=== PATIENT | male | born 1955 | race American Indian/Alaskan Native ===

== ENCOUNTER 2021-12-09 13:31 | Inpatient (IN) | payer MEDICARE, OTHER ==
[~2021-12-09] VITALS: Ht 170.2 cm; Wt 109.9 kg
[~2021-12-09 13:31] MED LIST: heparin 10,000 units/1 ML INJ ONE; normal saline 1000ML IV soln ONE; papaverine 30 mg/ml 2ml inj. ONE; sevoflurane 250ml liquid IH ONE
[2021-12-09] MEDS ORDERED: normal saline 1000ML IV soln IVB ONE ×2 (13:45→14:00)
[2021-12-09] MEDS ORDERED: normal saline 1000ml 1,000 ML IV ONE (13:45)
[2021-12-09] MEDS ORDERED: aspirin 81mg tab.chew PO ONE ×3 (13:45→16:55)
[2021-12-09] MEDS ORDERED: heparin 10,000 units/1 ML INJ IV ONE ×2 (13:50→14:05)
--- NOTE | 2021-12-09 13:57 | NUR ---
[facility] - DAUGHTER AT [facility] [phone]
--- NOTE | 2021-12-09 13:59 | NUR ---
DR RUGGIERO AT BEDSIDE
[2021-12-09] MEDS ORDERED: morphine 4 MG/ML inj SYRINge IV ONE (14:00)
[2021-12-09] MEDS: metoprolol tartrate 1mg/ml inj IV SCH ×3 (14:10→14:40)
[2021-12-09] MEDS: heparin 25,000 UNIT/250ml bag 250 ML IV SCH (14:10)
[2021-12-09 14:14] LABS: BASOPHILS # (AUTO) 0.1 X10'3 (0-0.2); BASOPHILS % (AUTO) 0.3 % (0-1); EOSINOPHILS # (AUTO) 0.1 X10'3 (0-0.9); EOSINOPHILS % (AUTO) 0.7 % (0-6); HEMATOCRIT 46.7 % (42.0-52.0); HEMOGLOBIN 15.8 g/dl (14.0-17.9); LYMPHOCYTES % (AUTO) 12.1 % (21-51); MEAN CORPUSCULAR HEMOGLOBIN 31.1 PG (27.0-31.0); MEAN CORPUSCULAR HGB CONC 33.9 g/dL (33.0-36.5); MEAN CORPUSCULAR VOLUME 91.8 FL (78-98); MEAN PLATELET VOLUME 7.6 FL (7.4-10.4); MONOCYTES # (AUTO) 0.9 X10'3 (0-0.9); MONOCYTES % (AUTO) 5.4 % (2-12); NEUTROPHILS # (AUTO) 13.5 X10'3 (1.8-7.7); NEUTROPHILS % (AUTO) 81.5 % (42-75); PLATELET COUNT 278 X10'3 (140-440); RED BLOOD COUNT 5.08 X10'6 (4.70-6.10); RED CELL DISTRIBUTION WIDTH 13.5 % (11.5-14.5); WHITE BLOOD COUNT 16.5 X10'3 (4.5-11.0)
[2021-12-09] MEDS ORDERED: midazolam 1 mg/ML 2ml injection ONE (14:23)
[2021-12-09] MEDS ORDERED: LIDOcaine 1% (10mg/ml)w/preservative injection 20ml MDV ONE (14:23)
[2021-12-09] MEDS ORDERED: fentaNYL/PF 50MCG/1 ML 2ML syringe ONE (14:23)
[2021-12-09] MEDS ORDERED: iohexol 350 MG/ML 50ML vial IV ONE (14:23)
[2021-12-09] MEDS ORDERED: iohexol 350MG/ML 100ml bottle IV ONE ×3 (14:23→15:40)
[2021-12-09 14:25] LABS: APTT 24 SECONDS (22-32)
[2021-12-09] MEDS: tirofiban 5mg in NS 100mL 100 ML IV SCH ×2 (14:31→19:07)
--- NOTE | 2021-12-09 14:31 | NUR ---
DOOR TO DOOR FUNDRAISING COLLECTOR AT BEDSIDE TO TAKE PT
[2021-12-09 14:35] LABS: ALANINE AMINOTRANSFERASE 55 U/L (12-78); ALBUMIN 4.1 G/DL (3.4-5.0); ALBUMIN/GLOBULIN RATIO 1.1 (1.1-1.5); ALKALINE PHOSPHATASE 91 IU/L (46-116); ANION GAP 12 (8-16); ASPARTATE AMINO TRANSFERASE 28 U/L (10-37); BILIRUBIN,TOTAL 0.7 MG/DL (0.1-1.0); BLOOD UREA NITROGEN 11 MG/DL (7-18); BUN/CREATININE RATIO 9.6 (5.4-32.0); CALCIUM 9.4 MG/DL (8.5-10.1); CHLORIDE 103 MMOL/L (99-107); CREATININE 1.15 MG/DL (0.60-1.10); GLUCOSE 191 MG/DL (70-104); MAGNESIUM 1.9 MG/DL (1.5-2.4); POTASSIUM 3.8 MMOL/L (3.5-5.1); SODIUM 139 MMOL/L (135-145); TOTAL CARBON DIOXIDE 24.4 MMOL/L (24-32); TOTAL PROTEIN 7.9 G/DL (6.4-8.2); eGFR 63 ML/MIN
[2021-12-09] MEDS ORDERED: diphenhydrAMINE 50 mg/ml inj ONE (14:43)
--- NOTE | 2021-12-09 14:45 | NUR ---
notified dr hayes that pt trop o hr is 463.
[2021-12-09] MEDS ORDERED: tirofiban 5mg in NS 100mL 100 ML IV ONE (15:10)
[2021-12-09] MEDS ORDERED: nitroGLYCERIN-Tridil 50MG/D5W 250 ML IV ONE (15:28)
[2021-12-09] MEDS ORDERED: tPA-cathflo 2 MG/2 ml IV flush ONE ×2 (15:33→15:34)
[2021-12-09] MEDS ORDERED: HYDROmorphone 1 mg/ml syringe ONE (16:04)
[2021-12-09] MEDS ORDERED: proCHLORperazine 10 MG/2 ml inj IV PRN (16:55)
[2021-12-09] MEDS ORDERED: acetaminophen 325mg tablet PO PRN ×2 (16:55)
[2021-12-09] MEDS ORDERED: OXAZEpam 15mg capsule PO PRN (16:55)
[2021-12-09] MEDS ORDERED: nitroGLYCERIN 0.4mg SUBLingual tab SL PRN (16:55)
[2021-12-09] MEDS ORDERED: magnesium hydroxide 30ml (MOM) UD suspension PO PRN (16:55)
[2021-12-09] MEDS ORDERED: morphine 10mg/ml inj. IV PRN (16:55)
[2021-12-09] MEDS ORDERED: HYDROmorphone 1 mg/ml syringe IV PRN (16:55)
[2021-12-09] MEDS ORDERED: morphine 4 MG/ML inj SYRINge IV PRN (16:55)
[2021-12-09 18:00] VITALS: BP 114/68
--- NOTE | 2021-12-09 18:10 | NUR ---
Patient in room ICU 2041. I have received report from YASMANY Baez and had the opportunity to ask questions and assume patient care. Patient is awake and alert in bed with his daughter at bedside. Patient states that she is his emergency contact: Bharti Hamlin [phone] cell, . Patient with right femoral sheath in place transduced to arterial line with good wave form on monitor. Patient in Sinus tachycardia at 120's with frequent ectopy. Patient in and out of a rhythm with ST elevation. Sheath in soft, non bruising noted, small area of oozing noted on gauze dressing- outlined. Positive pedial pulse present. Patient denies any numbness or tingling to extremities. Patient denies any chest pain or discomfort at this time. Patient with bilateral PIV's with Aggrastat and Heparin infusing. 1/2 normal saline infusing per MD order.
--- NOTE | 2021-12-09 18:40 | NUR ---
1830 patient cardiac rhythm pulsing V-tach rate in 190's. Patient without c/o chest pain or decrease in blood pressure during the 50 + beat run. Patient self converted out of rhythm into pre existing sinus tachycardia with episode of nausea and vomiting, Compazine adminsitered IV per order. Dr. Donaldson called order to give 2000 dose of 12.5 mg dose of Lopressor PO now. No other orders at this time.
[2021-12-09] MEDS: metoprolol tartrate 12.5mg (1/2 tablet) PO SCH (18:55)
[2021-12-09 19:00] VITALS: BP 126/68
[2021-12-09] MEDS: sodium chloride 0.45% 1,000 ML IV SCH (19:08)
[2021-12-09] MEDS: nitroGLYCERIN-Tridil 50MG/D5W 250 ML IV SCH (19:31)
[2021-12-09 19:59] LABS: BASOPHILS % (AUTO) 0.1 % (0-1); EOSINOPHILS % (AUTO) 0 % (0-6); HEMATOCRIT 40.9 % (42.0-52.0); LYMPHOCYTES # (AUTO) 1.1 X10'3 (1.1-4.8); LYMPHOCYTES % (AUTO) 6.7 % (21-51); MEAN CORPUSCULAR HEMOGLOBIN 30.9 PG (27.0-31.0); MEAN CORPUSCULAR HGB CONC 34.1 g/dL (33.0-36.5); MEAN CORPUSCULAR VOLUME 90.6 FL (78-98); MEAN PLATELET VOLUME 7.3 FL (7.4-10.4); MONOCYTES # (AUTO) 0.7 X10'3 (0-0.9); MONOCYTES % (AUTO) 4.5 % (2-12); NEUTROPHILS # (AUTO) 14.6 X10'3 (1.8-7.7); NEUTROPHILS % (AUTO) 88.7 % (42-75); PLATELET COUNT 267 X10'3 (140-440); RED BLOOD COUNT 4.52 X10'6 (4.70-6.10); RED CELL DISTRIBUTION WIDTH 13.5 % (11.5-14.5); WHITE BLOOD COUNT 16.5 X10'3 (4.5-11.0)
[2021-12-09 20:00] VITALS: BP 129/69
[2021-12-09] MEDS: docusate sod 100mg capsule PO SCH (20:00)
[2021-12-09 20:16] LABS: ALANINE AMINOTRANSFERASE 67 U/L (12-78); ALBUMIN 3.2 G/DL (3.4-5.0); ALBUMIN/GLOBULIN RATIO 0.9 (1.1-1.5); ALKALINE PHOSPHATASE 76 IU/L (46-116); ANION GAP 10 (8-16); ASPARTATE AMINO TRANSFERASE 177 U/L (10-37); BILIRUBIN,TOTAL 0.6 MG/DL (0.1-1.0); BLOOD UREA NITROGEN 10 MG/DL (7-18); BUN/CREATININE RATIO 11.9 (5.4-32.0); CALCIUM 8.7 MG/DL (8.5-10.1); CHLORIDE 105 MMOL/L (99-107); CREATININE 0.84 MG/DL (0.60-1.10); GLUCOSE 167 MG/DL (70-104); POTASSIUM 4.3 MMOL/L (3.5-5.1); SODIUM 138 MMOL/L (135-145); TOTAL CARBON DIOXIDE 22.6 MMOL/L (24-32); TOTAL PROTEIN 6.6 G/DL (6.4-8.2); eGFR > 90 ML/MIN
[2021-12-09 20:49] LABS: MAGNESIUM 1.9 MG/DL (1.5-2.4)
[2021-12-09 21:00] VITALS: BP 135/72
[2021-12-09] MEDS ORDERED: magnesium 2GM in 50ml NS 50 ML IV ONE (21:35)
--- NOTE | 2021-12-09 21:45 | NUR ---
Phone call to Dr. Donaldson re: Continued episodes of V-Tach 10-15 beat runs with flipping of bundle branch block, couplets noted in between. Patient denies chest pain or discomfort at this time, no change in blood pressure with arrhythmias. Reported current lab values K 4.[address] orders for Magnesium replacement. Per Dr. Donaldson he discussed case with Dr. Mcdonald. Dr. Donaldson to order Lidocaine drip.
[2021-12-09 22:00] VITALS: BP 127/65
[2021-12-09] MEDS: LIDOcaine 2 gm/250ml D5W 250 ML IV SCH (22:12)
[2021-12-09 23:00] VITALS: BP 127/64
[2021-12-09] MEDS: cyclobenzaprine 10mg tablet PO PRN (23:52)
[2021-12-09] MEDS: HYDROcodone/acetaminophen 10/325mg tab PO PRN (23:52)
[2021-12-10] VITALS (23 sets, daily range): BP systolic 75–134; BP diastolic 14–66
--- NOTE | 2021-12-10 | NUR ---
Patient complaining of upper back pain. Patient has chronic pain to his area and states "this feels normal" Patient rates pain 8/10 describes pain as "sore". Patient medicated per MD orders for pain, patient repositioned in bed.
[2021-12-10] MEDS: tirofiban 5mg in NS 100mL 100 ML IV SCH ×5 (00:48→23:29)
[2021-12-10] MEDS ORDERED: LIDOcaine 2% 10ml TOPICAL JELLY (Urojet) TP ONE (02:45)
[2021-12-10 03:34] LABS: BASOPHILS % (AUTO) 0.2 % (0-1); EOSINOPHILS % (AUTO) 0.1 % (0-6); HEMATOCRIT 40.3 % (42.0-52.0); HEMOGLOBIN 13.5 g/dl (14.0-17.9); LYMPHOCYTES # (AUTO) 1.6 X10'3 (1.1-4.8); LYMPHOCYTES % (AUTO) 10.2 % (21-51); MEAN CORPUSCULAR HEMOGLOBIN 30.5 PG (27.0-31.0); MEAN CORPUSCULAR HGB CONC 33.4 g/dL (33.0-36.5); MEAN CORPUSCULAR VOLUME 91.2 FL (78-98); MEAN PLATELET VOLUME 7.4 FL (7.4-10.4); MONOCYTES # (AUTO) 0.8 X10'3 (0-0.9); NEUTROPHILS # (AUTO) 13.2 X10'3 (1.8-7.7); NEUTROPHILS % (AUTO) 84.5 % (42-75); PLATELET COUNT 272 X10'3 (140-440); RED BLOOD COUNT 4.42 X10'6 (4.70-6.10); RED CELL DISTRIBUTION WIDTH 13.8 % (11.5-14.5); WHITE BLOOD COUNT 15.6 X10'3 (4.5-11.0)
[2021-12-10 03:58] LABS: ALANINE AMINOTRANSFERASE 72 U/L (12-78); ALBUMIN/GLOBULIN RATIO 0.9 (1.1-1.5); ALKALINE PHOSPHATASE 69 IU/L (46-116); ANION GAP 9 (8-16); ASPARTATE AMINO TRANSFERASE 219 U/L (10-37); BILIRUBIN,TOTAL 0.7 MG/DL (0.1-1.0); BLOOD UREA NITROGEN 13 MG/DL (7-18); BUN/CREATININE RATIO 15.5 (5.4-32.0); CALCIUM 8.2 MG/DL (8.5-10.1); CHLORIDE 103 MMOL/L (99-107); CREATININE 0.84 MG/DL (0.60-1.10); GLUCOSE 160 MG/DL (70-104); MAGNESIUM 2.5 MG/DL (1.5-2.4); POTASSIUM 4.2 MMOL/L (3.5-5.1); SODIUM 135 MMOL/L (135-145); TOTAL CARBON DIOXIDE 22.9 MMOL/L (24-32); TOTAL PROTEIN 6.3 G/DL (6.4-8.2); eGFR > 90 ML/MIN
--- NOTE | 2021-12-10 04:30 | NUR ---
Rounds with Dr. Tapia. Reviewed events of the shift, continued ectopy. MD to place orders for a slow Amiodarone bolus and 2 g Calcium replacement.
[2021-12-10] MEDS ORDERED: Insulin Reg/NS 100units/100mL 100 ML IV SCH ×2 (05:30→09:15)
[2021-12-10] MEDS ORDERED: amiodarone 150mg/dext, iso-os 100 ML IV ONE (05:50)
[2021-12-10] MEDS: CALCIUM GLUC 1gm/50ml NACL,iso 50 ML IV SCH ×2 (05:55→06:55)
--- NOTE | 2021-12-10 06:15 | NUR ---
Problems reprioritized. Patient report given, questions answered & plan of care reviewed with Rachna Becerril RN.
[2021-12-10] MEDS: atorvastatin 20mg tablet PO SCH (08:06)
[2021-12-10] MEDS: metoprolol tartrate 12.5mg (1/2 tablet) PO SCH ×2 (08:06→20:00)
[2021-12-10] MEDS: aspirin 81mg tab.chew PO SCH (08:06)
[2021-12-10] MEDS: docusate sod 100mg capsule PO SCH ×2 (08:06→20:00)
[2021-12-10] MEDS ORDERED: MESSAGE TO NURSING PO ONE ×7 (09:15→17:00)
[2021-12-10] MEDS ORDERED: cefazolin/dext.iso 2gm/50ml 50 ML IV ONE (09:15)
[2021-12-10] MEDS ORDERED: gabapentin 400mg capsule PO ONE (09:15)
[2021-12-10] MEDS ORDERED: insulin glargine (Lantus) pen - multi-dose SQ PRN (09:15)
[2021-12-10] MEDS ORDERED: MALTODEXTRIN/FRUCTOSE 0.68 KCAL/ML LIQUID 296ML BOTTLE PO ONE (09:15)
[2021-12-10] MEDS ORDERED: vancomycin/NS 1 GM ADD-VANTAGE 250 ML IV ONE (09:15)
[2021-12-10] MEDS ORDERED: dextrose 50%-water 50ml dispensing syringe IV PRN (09:15)
[2021-12-10] MEDS ORDERED: MESSAGE TO PHARMACY IJ ONE (09:15)
[2021-12-10] MEDS ORDERED: NO HOME MEDS (09:29)
[2021-12-10] MEDS: sodium chloride 0.45% 1,000 ML IV SCH (13:00)
[2021-12-10] MEDS: pantoprazole 40MG/NS 100ML BAG 100 ML IV SCH (13:41)
[2021-12-10] MEDS: lisinopril 2.5mg tablet PO SCH (13:50)
[2021-12-10] MEDS: heparin 25,000 UNIT/250ml bag 250 ML IV SCH (14:55)
[2021-12-10] MEDS: heparin 10,000 units/1 ML INJ IV PRN (16:02)
[2021-12-10 16:22] LABS: ABG HCO3 22.2 mmol/L (22.0-26.0); ABG OXYGEN SATURATION 92.6 % (94-97); ABG PCO2 (T) 29.5 mmHg (35.0-48.0); ABG PO2 (T) 59.5 mmHg (75.0-100.0); FCOHb 0.8 % (0.0-3.9); FMetHb 0.2 % (0.0-1.5); FO2Hb 91.7 % (94-97); TOTAL HEMOGLOBIN 13.8 G/dl (14.0-18.0)
[2021-12-10] MEDS: nitroGLYCERIN-Tridil 50MG/D5W 250 ML IV SCH (16:55)
[2021-12-10 18:02] LABS: CLARITY,URINE CLEAR (Clear); COLOR,URINE YELLOW (Yellow); GLUCOSE, URINE NEGATIVE (Neg); KETONES,URINE NEGATIVE (Neg); LEUKOCYTE ESTERASE ,URINE NEGATIVE (Neg); NITRITES, URINE NEGATIVE (Neg); OCCULT BLOOD,URINE NEGATIVE (Neg); PROTEIN,URINE NEGATIVE (Neg); UROBILINOGEN,URINE 0.2 E.U/dL (0.2-1.0)
[2021-12-10 18:13] LABS: UA COLLECTION TYPE VOIDED
[2021-12-10] MEDS: HYDROcodone/acetaminophen 10/325mg tab PO PRN (18:58)
[2021-12-10] MEDS: cyclobenzaprine 10mg tablet PO PRN (18:58)
[2021-12-11] VITALS (24 sets, daily range): BP systolic 97–127; BP diastolic 45–62
[2021-12-11 02:57] LABS: BASOPHILS # (AUTO) 0.1 X10'3 (0-0.2); BASOPHILS % (AUTO) 0.3 % (0-1); EOSINOPHILS # (AUTO) 0.1 X10'3 (0-0.9); EOSINOPHILS % (AUTO) 0.4 % (0-6); HEMATOCRIT 38.2 % (42.0-52.0); HEMOGLOBIN 12.7 g/dl (14.0-17.9); LYMPHOCYTES # (AUTO) 1.9 X10'3 (1.1-4.8); LYMPHOCYTES % (AUTO) 12.9 % (21-51); MEAN CORPUSCULAR HEMOGLOBIN 30.6 PG (27.0-31.0); MEAN CORPUSCULAR HGB CONC 33.3 g/dL (33.0-36.5); MEAN PLATELET VOLUME 8.2 FL (7.4-10.4); MONOCYTES # (AUTO) 1.1 X10'3 (0-0.9); MONOCYTES % (AUTO) 7.7 % (2-12); NEUTROPHILS # (AUTO) 11.4 X10'3 (1.8-7.7); NEUTROPHILS % (AUTO) 78.7 % (42-75); PLATELET COUNT 233 X10'3 (140-440); RED BLOOD COUNT 4.16 X10'6 (4.70-6.10); RED CELL DISTRIBUTION WIDTH 13.8 % (11.5-14.5); WHITE BLOOD COUNT 14.4 X10'3 (4.5-11.0)
[2021-12-11 03:11] LABS: ALANINE AMINOTRANSFERASE 59 U/L (12-78); ALBUMIN 2.7 G/DL (3.4-5.0); ALBUMIN/GLOBULIN RATIO 0.8 (1.1-1.5); ALKALINE PHOSPHATASE 56 IU/L (46-116); ANION GAP 8 (8-16); ASPARTATE AMINO TRANSFERASE 120 U/L (10-37); BLOOD UREA NITROGEN 17 MG/DL (7-18); BUN/CREATININE RATIO 19.8 (5.4-32.0); CALCIUM 7.7 MG/DL (8.5-10.1); CHLORIDE 104 MMOL/L (99-107); CREATININE 0.86 MG/DL (0.60-1.10); GLUCOSE 143 MG/DL (70-104); POTASSIUM 3.9 MMOL/L (3.5-5.1); SODIUM 136 MMOL/L (135-145); TOTAL CARBON DIOXIDE 24.5 MMOL/L (24-32); TOTAL PROTEIN 6.1 G/DL (6.4-8.2); eGFR 88 ML/MIN
[2021-12-11] MEDS: LIDOcaine 2 gm/250ml D5W 250 ML IV SCH (03:54)
[2021-12-11] MEDS: tirofiban 5mg in NS 100mL 100 ML IV SCH (03:59)
[2021-12-11] MEDS ORDERED: MESSAGE TO PHARMACY IJ ONE (05:30)
[2021-12-11] MEDS ORDERED: cefazolin/dext.iso 2gm/50ml 50 ML IV ONE ×2 (05:30)
[2021-12-11] MEDS ORDERED: gabapentin 400mg capsule PO ONE ×2 (05:30)
[2021-12-11] MEDS ORDERED: MESSAGE TO NURSING PO ONE ×4 (05:30→10:00)
[2021-12-11] MEDS ORDERED: MALTODEXTRIN/FRUCTOSE 0.68 KCAL/ML LIQUID 296ML BOTTLE PO ONE (05:30)
[2021-12-11] MEDS ORDERED: Insulin Reg/NS 100units/100mL 100 ML IV SCH (05:30)
[2021-12-11] MEDS ORDERED: vancomycin/NS 1 GM ADD-VANTAGE 250 ML IV ONE (05:30)
[2021-12-11] MEDS: docusate sod 100mg capsule PO SCH ×3 (08:00→20:06)
[2021-12-11] MEDS: atorvastatin 20mg tablet PO SCH (08:38)
[2021-12-11] MEDS: aspirin 81mg tab.chew PO SCH (08:38)
[2021-12-11] MEDS: metoprolol tartrate 12.5mg (1/2 tablet) PO SCH ×2 (08:39→20:06)
[2021-12-11] MEDS: HYDROcodone/acetaminophen 10/325mg tab PO PRN ×2 (08:39→17:29)
[2021-12-11] MEDS: lisinopril 2.5mg tablet PO SCH (08:55)
[2021-12-11] MEDS: sodium chloride 0.45% 1,000 ML IV SCH (09:00)
[2021-12-11] MEDS: pantoprazole 40MG/NS 100ML BAG 100 ML IV SCH (11:53)
[2021-12-11] MEDS ORDERED: ringers solution, lacted 1,000 ML IV ONE (12:05)
[2021-12-11] MEDS: heparin 10,000 units/1 ML INJ IV PRN ×2 (15:07→22:35)
[2021-12-11] MEDS: nitroGLYCERIN-Tridil 50MG/D5W 250 ML IV SCH (19:29)
[2021-12-11] MEDS: heparin 25,000 UNIT/250ml bag 250 ML IV SCH (22:10)
[2021-12-12] VITALS (23 sets, daily range): BP systolic 99–165; BP diastolic 48–95
[2021-12-12 04:37] LABS: BASOPHILS % (AUTO) 0.2 % (0-1); EOSINOPHILS # (AUTO) 0.1 X10'3 (0-0.9); EOSINOPHILS % (AUTO) 0.8 % (0-6); HEMATOCRIT 35.8 % (42.0-52.0); LYMPHOCYTES # (AUTO) 1.9 X10'3 (1.1-4.8); LYMPHOCYTES % (AUTO) 17.6 % (21-51); MEAN CORPUSCULAR HEMOGLOBIN 30.8 PG (27.0-31.0); MEAN CORPUSCULAR HGB CONC 33.5 g/dL (33.0-36.5); MEAN CORPUSCULAR VOLUME 91.9 FL (78-98); MEAN PLATELET VOLUME 7.6 FL (7.4-10.4); MONOCYTES % (AUTO) 9.1 % (2-12); NEUTROPHILS % (AUTO) 72.3 % (42-75); PLATELET COUNT 193 X10'3 (140-440); RED BLOOD COUNT 3.89 X10'6 (4.70-6.10); RED CELL DISTRIBUTION WIDTH 13.4 % (11.5-14.5)
[2021-12-12 04:50] LABS: ALANINE AMINOTRANSFERASE 40 U/L (12-78); ALBUMIN 2.5 G/DL (3.4-5.0); ALBUMIN/GLOBULIN RATIO 0.7 (1.1-1.5); ALKALINE PHOSPHATASE 59 IU/L (46-116); ANION GAP 8 (8-16); ASPARTATE AMINO TRANSFERASE 58 U/L (10-37); BILIRUBIN,TOTAL 0.7 MG/DL (0.1-1.0); BLOOD UREA NITROGEN 16 MG/DL (7-18); CALCIUM 7.8 MG/DL (8.5-10.1); CHLORIDE 103 MMOL/L (99-107); CREATININE 0.94 MG/DL (0.60-1.10); GLUCOSE 119 MG/DL (70-104); MAGNESIUM 2.1 MG/DL (1.5-2.4); POTASSIUM 3.8 MMOL/L (3.5-5.1); SODIUM 134 MMOL/L (135-145); TOTAL CARBON DIOXIDE 22.7 MMOL/L (24-32); eGFR 80 ML/MIN
[2021-12-12] MEDS: HYDROcodone/acetaminophen 10/325mg tab PO PRN (05:51)
[2021-12-12] MEDS ORDERED: famotidine/PF 10 mg/ml inj IV ONE (06:00)
[2021-12-12] MEDS ORDERED: LORazepam 2 mg/ml vial IV ONE (06:00)
[2021-12-12] MEDS ORDERED: cefazolin/dext.iso 2gm/50ml 50 ML IV ONE (06:00)
[2021-12-12] MEDS ORDERED: vancomycin/NS 1 GM ADD-VANTAGE 250 ML IV ONE (06:00)
--- NOTE | 2021-12-12 06:08 | NUR ---
Problems reprioritized. Patient report given, questions answered & plan of care reviewed with Ana JADE.
[2021-12-12] MEDS ORDERED: calcium chloride 100 MG/1 ML inj IV ONE (08:00)
[2021-12-12] MEDS ORDERED: sodium bicarbonate (8.4%) 1 mEq/ml syringe ONE (08:00)
[2021-12-12] MEDS: docusate sod 100mg capsule PO SCH ×2 (08:00→19:32)
[2021-12-12] MEDS ORDERED: NORepinephrine 8 MG in NS 250 ML BAG (32 mcg/ml) IV ONE (08:00)
[2021-12-12] MEDS ORDERED: albumin (human) 25% 100 ML IV solution IV ONE (08:00)
[2021-12-12] MEDS: atorvastatin 20mg tablet PO SCH (08:00)
[2021-12-12] MEDS: lisinopril 2.5mg tablet PO SCH (08:00)
[2021-12-12] MEDS: pantoprazole 40MG/NS 100ML BAG 100 ML IV SCH ×2 (08:00→20:25)
[2021-12-12] MEDS ORDERED: heparin 1,000 units/ml 10ml inj ONE (08:00)
[2021-12-12] MEDS: aspirin 81mg tab.chew PO SCH (08:00)
[2021-12-12] MEDS ORDERED: aminocaproic acid 250 MG/1 ML inj. ONE (08:00)
[2021-12-12] MEDS: metoprolol tartrate 12.5mg (1/2 tablet) PO SCH ×2 (08:00→19:32)
[2021-12-12] MEDS ORDERED: magnesium 1 GM/2 ML inj ONE (08:00)
[2021-12-12] MEDS ORDERED: LIDOcaine 2% (20 mg/ml) 5ml cardiac syringe ONE (08:00)
[2021-12-12] MEDS ORDERED: methylPREDNISolone sod succ 1000mg vial ONE (08:00)
[2021-12-12] MEDS ORDERED: heparin 10,000 units/1 ML INJ ONE (08:00)
[2021-12-12] MEDS: heparin 25,000 UNIT/250ml bag 250 ML IV SCH (08:38)
--- NOTE | 2021-12-12 08:53 | NUR ---
Porfirio BEEBE called and ordered the heparin to restart
--- NOTE | 2021-12-12 10:28 | NUR ---
Heparin turned off at 1000
[2021-12-12] MEDS ORDERED: ceFAZolin 1000mg inj ONE (11:42)
[2021-12-12] MEDS ORDERED: epiNEPHrine 1 mg/ml inj ONE (11:42)
[2021-12-12] MEDS ORDERED: gabapentin 400mg capsule PO ONE (11:47)
[2021-12-12] MEDS ORDERED: SUFENTANIL CITRATE 50 MCG/ML 2ml ampule IV ONE (12:27)
[2021-12-12] MEDS ORDERED: MIDAZolam 1 MG/ML 5ML VIAL ONE (12:28)
[2021-12-12] MEDS ORDERED: propofol inj 20 ML IV ONE (12:28)
[2021-12-12] MEDS ORDERED: rocuronium 10mg/ml inj IV ONE ×3 (12:32→15:52)
[2021-12-12 13:58] LABS: ABG BASE EXCESS -4.6 mmol/L (-2.0-2.0); ABG HCO3 20.3 mmol/L (22.0-26.0); ABG OXYGEN SATURATION 99.3 % (94-97); ABG PCO2 37.1 mmHg (35.0-48.0); ABG PO2 174.6 mmHg (75.0-100.0); CL (ABG) 102 mmol/L (98-110); FCOHb 0.8 % (0.0-3.9); FMetHb 0.3 % (0.0-1.5); FO2Hb 98.2 % (94-97); GLUCOSE (ABG) 182 mg/dl (70-105); IONIZED CA (ABG) 1.09 mmol/L (1.10-1.43); K (ABG) 3.7 mmol/L (3.5-5.0); TOTAL HEMOGLOBIN 11.7 G/dl (14.0-18.0)
[2021-12-12 14:48] LABS: ABG BASE EXCESS -2.5 mmol/L (-2.0-2.0); ABG HCO3 21.8 mmol/L (22.0-26.0); ABG OXYGEN SATURATION 99.7 % (94-97); ABG PCO2 35.6 mmHg (35.0-48.0); ABG PO2 417.6 mmHg (75.0-100.0); CL (ABG) 101 mmol/L (98-110); FCOHb 0.9 % (0.0-3.9); FMetHb 0.3 % (0.0-1.5); FO2Hb 98.5 % (94-97); GLUCOSE (ABG) 137 mg/dl (70-105); IONIZED CA (ABG) 0.98 mmol/L (1.10-1.43); K (ABG) 3.9 mmol/L (3.5-5.0); TOTAL HEMOGLOBIN 8.9 G/dl (14.0-18.0)
[2021-12-12 14:53] LABS: ACT @ 1.70 U 350 SEC (193-297); ACT @ 2.84 U 486 SEC (260-420); BASELINE ACT 168 SEC (101-148)
[2021-12-12 15:24] LABS: ABG BASE EXCESS VENOUS 1.3 mmol/L (-2.0 - 2.0); ABG HCO3 VENOUS 26.9 mmol/L (21.0-28.0); ABG PO2 VENOUS 47.2 mmHg (25.0-35.0); CL (ABG) 102 mmol/L (98-110); FCOHb VENOUS 1.1 %; FHHb VENOUS 17.8 %; FMetHb VENOUS 0.3 % (0.0 - 0.5); FO2Hb VENOUS 80.8 %; GLUCOSE (ABG) 154 mg/dl (70-105); TOTAL HEMOGLOBIN 9.8 G/dl (14.0-18.0)
[2021-12-12 16:03] LABS: ABG BASE EXCESS 3.8 mmol/L (-2.0-2.0); ABG HCO3 28.4 mmol/L (22.0-26.0); ABG OXYGEN SATURATION 99.7 % (94-97); ABG PO2 421.1 mmHg (75.0-100.0); CL (ABG) 101 mmol/L (98-110); FCOHb 0.6 % (0.0-3.9); FMetHb 0.3 % (0.0-1.5); FO2Hb 98.8 % (94-97); GLUCOSE (ABG) 160 mg/dl (70-105); IONIZED CA (ABG) 1.29 mmol/L (1.10-1.43); K (ABG) 3.8 mmol/L (3.5-5.0); TOTAL HEMOGLOBIN 9.1 G/dl (14.0-18.0)
[2021-12-12 16:23] LABS: ABG BASE EXCESS VENOUS -0.9 mmol/L (-2.0 - 2.0); ABG HCO3 VENOUS 24.4 mmol/L (21.0-28.0); ABG PCO2 VENOUS 43.1 mmHg (41.0-54.0); ABG PO2 VENOUS 45.6 mmHg (25.0-35.0); CL (ABG) 102 mmol/L (98-110); FCOHb VENOUS 1.3 %; FHHb VENOUS 20.5 %; FMetHb VENOUS 0.3 % (0.0 - 0.5); FO2Hb VENOUS 77.9 %; GLUCOSE (ABG) 145 mg/dl (70-105); K (ABG) 3.8 mmol/L (3.5-5.0)
[2021-12-12 16:27] LABS: ACTIVATED CLOTTING TIME 139 SEC (101-148)
[2021-12-12] MEDS ORDERED: Neutra Phos packet PO PRN (16:40)
[2021-12-12] MEDS ORDERED: nitroGLYCERIN-Tridil 50MG/D5W 250 ML IV SCH (16:40)
[2021-12-12] MEDS ORDERED: bisacodyl 10mg suppository rectal RC PRN (16:40)
[2021-12-12] MEDS ORDERED: potassium CL 10mEq/100ml bag 100 ML IV PRN (16:40)
[2021-12-12] MEDS ORDERED: acetaminophen 325mg tablet PO PRN ×2 (16:40)
[2021-12-12] MEDS ORDERED: sodium chloride 0.45% 1,000 ML IV SCH (16:40)
[2021-12-12] MEDS ORDERED: sodium phosphate inj. 15 MMOL in dextrose 5%-water 250 ML IV PRN (16:40)
[2021-12-12] MEDS ORDERED: metoclopramide 5 mg/ml inj IV PRN (16:40)
[2021-12-12] MEDS ORDERED: DOBUTamine-DoBUTrex 500mg/D5W 250 ML IV PRN (16:40)
[2021-12-12] MEDS ORDERED: mineral oil 133ml enema RC PRN (16:40)
[2021-12-12] MEDS ORDERED: sodium phosphate inj. 30 MMOL in dextrose 5%-water 250 ML IV PRN (16:40)
[2021-12-12] MEDS ORDERED: Insulin Reg/NS 100units/100mL 100 ML IV SCH (16:40)
[2021-12-12] MEDS ORDERED: albumin (Human) 5% 250ml 250 ML IV PRN (16:40)
[2021-12-12] MEDS ORDERED: potassium Cl 20 mEq SR tablet PO PRN (16:40)
[2021-12-12] MEDS ORDERED: potassium Cl 20mEq/100mL bag 100 ML IV PRN (16:40)
[2021-12-12] MEDS ORDERED: magnesium citrate 296ml oral solution PO PRN (16:40)
[2021-12-12] MEDS ORDERED: magnesium 2GM in 50ml NS 50 ML IV PRN (16:40)
[2021-12-12] MEDS ORDERED: magnesium hydroxide 30ml (MOM) UD suspension PO PRN (16:40)
[2021-12-12] MEDS ORDERED: dextrose 50%-water 50ml dispensing syringe IV PRN (16:40)
[2021-12-12] MEDS ORDERED: insulin glargine (Lantus) pen - multi-dose SQ PRN (16:40)
[2021-12-12] MEDS ORDERED: HYDROcodone/acetaminophen 10/325mg tab PO PRN (16:40)
[2021-12-12] MEDS ORDERED: magnesium 4gm in 100ml NS 100 ML IV PRN (16:40)
[2021-12-12] MEDS ORDERED: niCARDipine-NS 40mg/200ml IVPB 200 ML IV PRN (16:40)
[2021-12-12] MEDS ORDERED: NORepinephrine 8mg/ 250ml NS 250 ML IV PRN (16:40)
[2021-12-12] MEDS ORDERED: ondansetron/PF 4mg/2ml inj IV PRN (16:40)
--- NOTE | 2021-12-12 17:15 | NUR ---
pt to room 2041 after surgery.
[2021-12-12 17:29] LABS: ABG BASE EXCESS -2.9 mmol/L (-2.0-2.0); ABG HCO3 21.3 mmol/L (22.0-26.0); ABG OXYGEN SATURATION 98.2 % (94-97); ABG PCO2 (T) 34.5 mmHg (35.0-48.0); ABG PO2 (T) 132.5 mmHg (75.0-100.0); FCOHb 0.2 % (0.0-3.9); FMetHb 0.3 % (0.0-1.5); FO2Hb 97.7 % (94-97); PATIENT TEMPERATURE 36.7; PEEP 5 cm H2O; RESPIRATORY RATE 14 b/min; TIDAL VOLUME 600 mL
[2021-12-12 17:41] LABS: BASOPHILS % (AUTO) 0.1 % (0-1); EOSINOPHILS % (AUTO) 0.1 % (0-6); HEMATOCRIT 33.2 % (42.0-52.0); HEMOGLOBIN 11.1 g/dl (14.0-17.9); LYMPHOCYTES # (AUTO) 0.6 X10'3 (1.1-4.8); LYMPHOCYTES % (AUTO) 3.2 % (21-51); MEAN CORPUSCULAR HEMOGLOBIN 30.8 PG (27.0-31.0); MEAN CORPUSCULAR HGB CONC 33.5 g/dL (33.0-36.5); MEAN CORPUSCULAR VOLUME 92.1 FL (78-98); MEAN PLATELET VOLUME 7.8 FL (7.4-10.4); MONOCYTES # (AUTO) 0.8 X10'3 (0-0.9); MONOCYTES % (AUTO) 4.2 % (2-12); NEUTROPHILS % (AUTO) 92.4 % (42-75); PLATELET COUNT 121 X10'3 (140-440); RED BLOOD COUNT 3.61 X10'6 (4.70-6.10); RED CELL DISTRIBUTION WIDTH 13.5 % (11.5-14.5); WHITE BLOOD COUNT 19.5 X10'3 (4.5-11.0)
[2021-12-12 18:02] LABS: ALBUMIN 2.3 G/DL (3.4-5.0); ALBUMIN/GLOBULIN RATIO 0.9 (1.1-1.5); ANION GAP 8 (8-16); ASPARTATE AMINO TRANSFERASE 88 U/L (10-37); BILIRUBIN,TOTAL 0.9 MG/DL (0.1-1.0); BLOOD UREA NITROGEN 13 MG/DL (7-18); BUN/CREATININE RATIO 14.9 (5.4-32.0); CALCIUM 7.3 MG/DL (8.5-10.1); CHLORIDE 106 MMOL/L (99-107); CREATININE 0.87 MG/DL (0.60-1.10); GLUCOSE 151 MG/DL (70-104); MAGNESIUM 2.4 MG/DL (1.5-2.4); PHOSPHORUS 1.6 MG/DL (2.3-4.5); POTASSIUM 3.9 MMOL/L (3.5-5.1); SODIUM 139 MMOL/L (135-145); TOTAL CARBON DIOXIDE 24.8 MMOL/L (24-32); TOTAL PROTEIN 4.8 G/DL (6.4-8.2); eGFR 87 ML/MIN
[2021-12-12 18:03] LABS: ALANINE AMINOTRANSFERASE 32 U/L (12-78); ALKALINE PHOSPHATASE 44 IU/L (46-116)
[2021-12-12] MEDS: morphine 4 MG/ML inj SYRINge IV PRN (18:23)
[2021-12-12 18:51] LABS: APTT 31 SECONDS (22-32)
[2021-12-12] MEDS: sodium chloride 0.45% 1,000 ML IV SCH (19:20)
[2021-12-12] MEDS: sennosides/docusate sodium tablet PO SCH (19:32)
[2021-12-12] MEDS: mupirocin 2% nasal ointment 1gm UD NS SCH (19:32)
[2021-12-12] MEDS: vancomycin/NS 1 GM ADD-VANTAGE 250 ML IV SCH (20:26)
[2021-12-12] MEDS: gabapentin 300mg capsule PO SCH (20:27)
[2021-12-12 20:47] LABS: TOTAL CELLS COUNTED 100
[2021-12-12 20:48] LABS: PLATELET ESTIMATE DECREASED
[2021-12-12] MEDS ORDERED: atorvastatin 10mg tablet PO SCH (21:00)
[2021-12-12 22:47] LABS: ABG BASE EXCESS -1.1 mmol/L (-2.0-2.0); ABG HCO3 23.1 mmol/L (22.0-26.0); ABG OXYGEN SATURATION 97.8 % (94-97); ABG PCO2 (T) 36.8 mmHg (35.0-48.0); ABG PO2 (T) 108.7 mmHg (75.0-100.0); FCOHb 0.4 % (0.0-3.9); FMetHb 0.3 % (0.0-1.5); FO2Hb 97.1 % (94-97); PEEP 5 cm H2O; TOTAL HEMOGLOBIN 11.8 G/dl (14.0-18.0)
--- NOTE | 2021-12-12 23:16 | NUR ---
pt extubated at 2300 and report given to [place]. time allowed for questions. pt stable
[2021-12-13] VITALS (28 sets, daily range): BP systolic 102–125; BP diastolic 45–86
[2021-12-13 00:41] LABS: MEAN CORPUSCULAR HGB CONC 34.3 g/dL (33.0-36.5)
[2021-12-13 00:42] LABS: BASOPHILS % (AUTO) 0 % (0-1); EOSINOPHILS % (AUTO) 0 % (0-6); HEMATOCRIT 31.9 % (42.0-52.0); HEMOGLOBIN 10.9 g/dl (14.0-17.9); LYMPHOCYTES # (AUTO) 0.4 X10'3 (1.1-4.8); LYMPHOCYTES % (AUTO) 2.3 % (21-51); MEAN CORPUSCULAR HEMOGLOBIN 31.3 PG (27.0-31.0); MEAN CORPUSCULAR VOLUME 91.3 FL (78-98); MEAN PLATELET VOLUME 8.3 FL (7.4-10.4); MONOCYTES # (AUTO) 0.5 X10'3 (0-0.9); MONOCYTES % (AUTO) 3.4 % (2-12); NEUTROPHILS # (AUTO) 15.2 X10'3 (1.8-7.7); NEUTROPHILS % (AUTO) 94.3 % (42-75); PLATELET COUNT 135 X10'3 (140-440); RED CELL DISTRIBUTION WIDTH 13.6 % (11.5-14.5); WHITE BLOOD COUNT 16.1 X10'3 (4.5-11.0)
[2021-12-13] MEDS: cefazolin/dext.iso 2gm/50ml 50 ML IV SCH ×4 (00:50→23:05)
[2021-12-13 00:51] LABS: ALBUMIN 2.6 G/DL (3.4-5.0); ANION GAP 7 (8-16); BLOOD UREA NITROGEN 14 MG/DL (7-18); BUN/CREATININE RATIO 14.1 (5.4-32.0); CALCIUM 7.4 MG/DL (8.5-10.1); CHLORIDE 109 MMOL/L (99-107); CREATININE 0.99 MG/DL (0.60-1.10); GLUCOSE 140 MG/DL (70-104); MAGNESIUM 2.4 MG/DL (1.5-2.4); PHOSPHORUS 2.1 MG/DL (2.3-4.5); POTASSIUM 4.4 MMOL/L (3.5-5.1); SODIUM 141 MMOL/L (135-145); TOTAL CARBON DIOXIDE 24.9 MMOL/L (24-32); eGFR 75 ML/MIN
[2021-12-13] MEDS: morphine 2 MG/ML inj. syringe IV PRN (01:42)
[2021-12-13 01:50] LABS: PLATELET ESTIMATE DECREASED; TOTAL CELLS COUNTED 100
[2021-12-13] MEDS: morphine 4 MG/ML inj SYRINge IV PRN (02:57)
--- NOTE | 2021-12-13 03:45 | NUR ---
R femoral sheath pulled at 0315; manual hold x 20minutes; femstop applied, site clear, no hematoma. good DP pulse.
--- NOTE | 2021-12-13 06:18 | NUR ---
Problems reprioritized. Patient report given, questions answered & plan of care reviewed with YASMANY Baer .
[2021-12-13] MEDS: metoprolol tartrate 12.5mg (1/2 tablet) PO SCH ×2 (08:00→19:27)
[2021-12-13] MEDS: mupirocin 2% nasal ointment 1gm UD NS SCH ×2 (08:21→20:00)
[2021-12-13] MEDS: sennosides/docusate sodium tablet PO SCH ×2 (08:21→19:27)
[2021-12-13] MEDS: atorvastatin 20mg tablet PO SCH (08:21)
[2021-12-13] MEDS: docusate sod 100mg capsule PO SCH ×2 (08:21→19:27)
[2021-12-13] MEDS: lisinopril 2.5mg tablet PO SCH (08:21)
[2021-12-13] MEDS: aspirin 325mg tablet, delayed-release (Ecotrin) PO SCH (08:21)
[2021-12-13] MEDS: gabapentin 300mg capsule PO SCH ×3 (08:22→19:28)
[2021-12-13] MEDS: vancomycin/NS 1 GM ADD-VANTAGE 250 ML IV SCH ×2 (08:23→19:28)
[2021-12-13] MEDS: pantoprazole 40MG/NS 100ML BAG 100 ML IV SCH ×2 (08:23→19:28)
[2021-12-13] MEDS: HYDROcodone/acetaminophen 10/325mg tab PO PRN ×2 (08:33→16:40)
--- NOTE | 2021-12-13 11:46 | NUR ---
CABG Consult: Pt s/p CABGx5 yesterday per EMR. Would benefit from written/verbal CABG diet education post-op once appropriate. Addendum: 12/13/21 at [address] Amended: Links added.
[2021-12-14] VITALS (19 sets, daily range): BP systolic 94–118; BP diastolic 49–71
[2021-12-14] MEDS: morphine 2 MG/ML inj. syringe IV PRN (03:04)
[2021-12-14 04:15] LABS: BASOPHILS % (AUTO) 0.1 % (0-1); EOSINOPHILS % (AUTO) 0 % (0-6); HEMATOCRIT 26.4 % (42.0-52.0); HEMOGLOBIN 8.9 g/dl (14.0-17.9); LYMPHOCYTES # (AUTO) 1.1 X10'3 (1.1-4.8); LYMPHOCYTES % (AUTO) 7.8 % (21-51); MEAN CORPUSCULAR HGB CONC 33.7 g/dL (33.0-36.5); MEAN CORPUSCULAR VOLUME 92.1 FL (78-98); MEAN PLATELET VOLUME 8.2 FL (7.4-10.4); MONOCYTES # (AUTO) 1.3 X10'3 (0-0.9); MONOCYTES % (AUTO) 8.8 % (2-12); NEUTROPHILS # (AUTO) 12.1 X10'3 (1.8-7.7); NEUTROPHILS % (AUTO) 83.3 % (42-75); PLATELET COUNT 138 X10'3 (140-440); RED BLOOD COUNT 2.87 X10'6 (4.70-6.10); RED CELL DISTRIBUTION WIDTH 13.7 % (11.5-14.5); WHITE BLOOD COUNT 14.5 X10'3 (4.5-11.0)
[2021-12-14 04:25] LABS: ALBUMIN 2.3 G/DL (3.4-5.0); ANION GAP 6 (8-16); BLOOD UREA NITROGEN 20 MG/DL (7-18); BUN/CREATININE RATIO 19.8 (5.4-32.0); CALCIUM 7.2 MG/DL (8.5-10.1); CHLORIDE 101 MMOL/L (99-107); CREATININE 1.01 MG/DL (0.60-1.10); GLUCOSE 141 MG/DL (70-104); MAGNESIUM 2.3 MG/DL (1.5-2.4); PHOSPHORUS 2.5 MG/DL (2.3-4.5); POTASSIUM 3.9 MMOL/L (3.5-5.1); SODIUM 133 MMOL/L (135-145); eGFR 73 ML/MIN
[2021-12-14] MEDS ORDERED: pantoprazole 40mg Tablet.DR PO SCH (07:30)
[2021-12-14] MEDS: HYDROcodone/acetaminophen 10/325mg tab PO PRN ×2 (09:05→19:33)
[2021-12-14] MEDS: sennosides/docusate sodium tablet PO SCH ×2 (09:06→19:28)
[2021-12-14] MEDS: gabapentin 300mg capsule PO SCH ×2 (09:06→13:07)
[2021-12-14] MEDS: lisinopril 2.5mg tablet PO SCH (09:06)
[2021-12-14] MEDS: mupirocin 2% nasal ointment 1gm UD NS SCH (09:07)
[2021-12-14] MEDS: docusate sod 100mg capsule PO SCH ×2 (09:07→19:28)
[2021-12-14] MEDS: atorvastatin 20mg tablet PO SCH (09:07)
[2021-12-14] MEDS: aspirin 325mg tablet, delayed-release (Ecotrin) PO SCH (09:08)
[2021-12-14] MEDS: cefazolin/dext.iso 2gm/50ml 50 ML IV SCH (09:08)
[2021-12-14] MEDS ORDERED: potassium Cl 20mEq/100mL bag 100 ML IV PRN (09:25)
[2021-12-14] MEDS ORDERED: potassium CL 10mEq/100ml bag 100 ML IV PRN (09:25)
[2021-12-14] MEDS ORDERED: potassium Cl 40MEQ/250ML bag 250 ML IV PRN (09:25)
[2021-12-14] MEDS ORDERED: magnesium 2GM in 50ml NS 50 ML IV PRN (09:25)
[2021-12-14] MEDS ORDERED: potassium Cl 20 mEq SR tablet PO PRN (09:25)
[2021-12-14] MEDS ORDERED: magnesium 4gm in 100ml NS 100 ML IV PRN (09:25)
[2021-12-14] MEDS ORDERED: potassium Cl 40MEQ/1/2NS 520ml 520 ML IV PRN (09:25)
--- NOTE | 2021-12-14 12:05 | NUR ---
CABG Consult: Pt admit DX STEMI and Takatsubo syndrome s/p CABGx5 per EMR. Pt seen by RD this AM for written/verbal CABG/HH diet eds w/ RD contact information provided. RD encouraged pt to contact dietitian's office if further questions/concerns. Pt reports good appetite, no food preferences, and declines ONS at this time. Pt PO 75% avg NCS diet post-op partially meeting needs. Noted 12kg wt gain in two days w/ -1.7L fluid balance likely error. LBM 12/09 receiving routine senna and colace post-op following two days NPO prior to surgery. Will continue to monitor for further nutrition intervention needs this admit. Rec: 1. continue NCS diet per MD 2. monitor for additional protein needs pending further PO trends post-op 3. routine bowel care 4. weekly wts Addendum: 12/14/21 at [address] Amended: Links added.
--- NOTE | 2021-12-14 14:10 | NUR ---
Transferred pt to room 3011 on playground monitor. YASMANY Summers there to receive pt. Took in WC, maintained sternal precautions. No issues.
--- NOTE | 2021-12-14 18:34 | NUR ---
Problems reprioritized. Patient report given, questions answered & plan of care reviewed with Susi JADE.
[2021-12-14] MEDS: potassium Cl 20 mEq SR tablet PO SCH (19:32)
[2021-12-14] MEDS: magnesium Cl slow-release 64mg tablet PO SCH (19:33)
[2021-12-14] MEDS: metoprolol tartrate 25mg tablet PO SCH (19:37)
[2021-12-15] MEDS: HYDROcodone/acetaminophen 10/325mg tab PO PRN ×3 (01:03→22:42)
[2021-12-15 02:00] VITALS: BP 127/88
[2021-12-15 06:00] VITALS: BP 109/64
--- NOTE | 2021-12-15 06:04 | NUR ---
Patient in room PCU 3011. I have received report from Susi JADE and had the opportunity to ask questions and assume patient care.
[2021-12-15 06:36] LABS: ALBUMIN 2.2 G/DL (3.4-5.0); ANION GAP 4 (8-16); BLOOD UREA NITROGEN 19 MG/DL (7-18); BUN/CREATININE RATIO 19.6 (5.4-32.0); CALCIUM 7.6 MG/DL (8.5-10.1); CHLORIDE 102 MMOL/L (99-107); CREATININE 0.97 MG/DL (0.60-1.10); GLUCOSE 129 MG/DL (70-104); POTASSIUM 4.1 MMOL/L (3.5-5.1); SODIUM 133 MMOL/L (135-145); TOTAL CARBON DIOXIDE 26.8 MMOL/L (24-32); eGFR 77 ML/MIN
[2021-12-15 06:37] LABS: BASOPHILS % (AUTO) 0.1 % (0-1); EOSINOPHILS # (AUTO) 0.1 X10'3 (0-0.9); EOSINOPHILS % (AUTO) 0.5 % (0-6); HEMATOCRIT 28.7 % (42.0-52.0); HEMOGLOBIN 9.6 g/dl (14.0-17.9); LYMPHOCYTES # (AUTO) 1.6 X10'3 (1.1-4.8); LYMPHOCYTES % (AUTO) 11.4 % (21-51); MEAN CORPUSCULAR HGB CONC 33.3 g/dL (33.0-36.5); MEAN CORPUSCULAR VOLUME 92.8 FL (78-98); MEAN PLATELET VOLUME 8.3 FL (7.4-10.4); MONOCYTES # (AUTO) 1.5 X10'3 (0-0.9); MONOCYTES % (AUTO) 10.3 % (2-12); NEUTROPHILS # (AUTO) 11.1 X10'3 (1.8-7.7); NEUTROPHILS % (AUTO) 77.7 % (42-75); PLATELET COUNT 169 X10'3 (140-440); RED BLOOD COUNT 3.09 X10'6 (4.70-6.10); RED CELL DISTRIBUTION WIDTH 13.9 % (11.5-14.5); WHITE BLOOD COUNT 14.3 X10'3 (4.5-11.0)
[2021-12-15] MEDS: docusate sod 100mg capsule PO SCH ×2 (08:00→20:00)
[2021-12-15] MEDS: sennosides/docusate sodium tablet PO SCH ×2 (08:00→20:00)
[2021-12-15] MEDS: atorvastatin 20mg tablet PO SCH (08:01)
[2021-12-15] MEDS: magnesium Cl slow-release 64mg tablet PO SCH ×2 (08:01→20:32)
[2021-12-15] MEDS: potassium Cl 20 mEq SR tablet PO SCH ×2 (08:01→20:32)
[2021-12-15] MEDS: aspirin 325mg tablet, delayed-release (Ecotrin) PO SCH (08:01)
[2021-12-15] MEDS: lisinopril 2.5mg tablet PO SCH (08:03)
[2021-12-15] MEDS: metoprolol tartrate 25mg tablet PO SCH ×2 (08:04→20:31)
[2021-12-15] MEDS: furosemide 40mg/4ml inj IV SCH (08:04)
[2021-12-15] MEDS ORDERED: furosemide 40mg/4ml inj IV ONE (09:05)
[2021-12-15 11:00] VITALS: BP 124/50
[2021-12-15 15:00] VITALS: BP 138/62
[2021-12-15 18:00] VITALS: BP 150/57
[2021-12-15 22:00] VITALS: BP 118/73
[2021-12-16 02:00] VITALS: BP 118/67
[2021-12-16 05:54] LABS: BASOPHILS % (AUTO) 0.3 % (0-1); EOSINOPHILS # (AUTO) 0.3 X10'3 (0-0.9); EOSINOPHILS % (AUTO) 1.6 % (0-6); HEMATOCRIT 33.3 % (42.0-52.0); LYMPHOCYTES # (AUTO) 2.2 X10'3 (1.1-4.8); LYMPHOCYTES % (AUTO) 13.5 % (21-51); MEAN CORPUSCULAR HEMOGLOBIN 30.9 PG (27.0-31.0); MEAN CORPUSCULAR HGB CONC 33.2 g/dL (33.0-36.5); MEAN CORPUSCULAR VOLUME 93.3 FL (78-98); MEAN PLATELET VOLUME 8.2 FL (7.4-10.4); MONOCYTES # (AUTO) 1.7 X10'3 (0-0.9); MONOCYTES % (AUTO) 10.2 % (2-12); NEUTROPHILS # (AUTO) 12.2 X10'3 (1.8-7.7); NEUTROPHILS % (AUTO) 74.4 % (42-75); PLATELET COUNT 249 X10'3 (140-440); RED BLOOD COUNT 3.57 X10'6 (4.70-6.10); WHITE BLOOD COUNT 16.4 X10'3 (4.5-11.0)
[2021-12-16 06:00] VITALS: BP 133/71
[2021-12-16 06:16] LABS: ALANINE AMINOTRANSFERASE 36 U/L (12-78); ALBUMIN 2.5 G/DL (3.4-5.0); ALBUMIN/GLOBULIN RATIO 0.7 (1.1-1.5); ALKALINE PHOSPHATASE 69 IU/L (46-116); ANION GAP 8 (8-16); ASPARTATE AMINO TRANSFERASE 39 U/L (10-37); BILIRUBIN,TOTAL 0.5 MG/DL (0.1-1.0); BLOOD UREA NITROGEN 16 MG/DL (7-18); BUN/CREATININE RATIO 16.3 (5.4-32.0); CALCIUM 8.1 MG/DL (8.5-10.1); CHLORIDE 103 MMOL/L (99-107); CREATININE 0.98 MG/DL (0.60-1.10); GLUCOSE 130 MG/DL (70-104); POTASSIUM 4.2 MMOL/L (3.5-5.1); SODIUM 137 MMOL/L (135-145); TOTAL CARBON DIOXIDE 26.5 MMOL/L (24-32); TOTAL PROTEIN 6.3 G/DL (6.4-8.2); eGFR 76 ML/MIN
[2021-12-16] MEDS: furosemide 40mg/4ml inj IV SCH (08:00)
[2021-12-16 08:08] VITALS: BP_SYST 133
[2021-12-16] MEDS: aspirin 325mg tablet, delayed-release (Ecotrin) PO SCH (08:08)
[2021-12-16] MEDS: lisinopril 2.5mg tablet PO SCH (08:08)
[2021-12-16] MEDS: sennosides/docusate sodium tablet PO SCH (08:08)
[2021-12-16] MEDS: magnesium Cl slow-release 64mg tablet PO SCH (08:08)
[2021-12-16] MEDS: metoprolol tartrate 25mg tablet PO SCH (08:08)
[2021-12-16] MEDS: atorvastatin 20mg tablet PO SCH (08:08)
[2021-12-16] MEDS: docusate sod 100mg capsule PO SCH (08:09)
[2021-12-16] MEDS: potassium Cl 20 mEq SR tablet PO SCH (08:09)
[2021-12-16] MEDS ORDERED: furosemide 40mg tablet PO ONE (09:35)
[2021-12-16] MEDS ORDERED: ASPI-1071 PO (09:40)
[2021-12-16] MEDS ORDERED: LOP25T PO (09:40)
[2021-12-16] MEDS ORDERED: ATOR20TA66 PO (09:40)
[2021-12-16] MEDS ORDERED: LISI2.5T14 PO (09:40)
[2021-12-16] MEDS ORDERED: HYDR-3972 PO (09:40)
== END 2021-12-16 12:02 | disposition home or self-care (01) | DRG 231 ==
LOC: ER 13:31 → ICU 2S 13:32 → PCU 3S 12-14 14:52
PROVIDERS: ADMIT Internal Medicine Cardiovascular Disease; ATTEND Internal Medicine Cardiovascular Disease
PROC: 4A023N7 Measurement of Cardiac Sampling and Pressure, Left Heart, Percutaneous Approach (ICD-10-PCS; principal; 2021-12-09)
PROC: 027034Z Dilation of Coronary Artery, One Artery with Drug-eluting Intraluminal Device, Percutaneous Approach (ICD-10-PCS; 2021-12-09)
PROC: 02703ZZ Dilation of Coronary Artery, One Artery, Percutaneous Approach (ICD-10-PCS; 2021-12-09)
PROC: B2111ZZ Fluoroscopy of Multiple Coronary Arteries using Low Osmolar Contrast (ICD-10-PCS; 2021-12-09)
PROC: B2151ZZ Fluoroscopy of Left Heart using Low Osmolar Contrast (ICD-10-PCS; 2021-12-09)
PROC: 02100Z9 Bypass Coronary Artery, One Artery from Left Internal Mammary, Open Approach (ICD-10-PCS; 2021-12-12)
PROC: 021309W Bypass Coronary Artery, Four or More Arteries from Aorta with Autologous Venous Tissue, Open Approach (ICD-10-PCS; 2021-12-12)
PROC: 06BP4ZZ Excision of Right Saphenous Vein, Percutaneous Endoscopic Approach (ICD-10-PCS; 2021-12-12)
PROC: 0HRLX74 Replacement of Left Lower Leg Skin with Autologous Tissue Substitute, Partial Thickness, External Approach (ICD-10-PCS; 2021-12-12)
PROC: 0HRKX74 Replacement of Right Lower Leg Skin with Autologous Tissue Substitute, Partial Thickness, External Approach (ICD-10-PCS; 2021-12-12)
PROC: 5A1221Z Performance of Cardiac Output, Continuous (ICD-10-PCS; 2021-12-12)
PROC: B24BZZ4 Ultrasonography of Heart with Aorta, Transesophageal (ICD-10-PCS; 2021-12-12)
DX: I21.19 ST elevation (STEMI) myocardial infarction involving other coronary artery of inferior wall (principal); I50.21 Acute systolic (congestive) heart failure; I47.2 Ventricular tachycardia; I25.10 Atherosclerotic heart disease of native coronary artery without angina pectoris; Z20.822 Contact with and (suspected) exposure to COVID-19; I25.5 Ischemic cardiomyopathy; E66.01 Morbid (severe) obesity due to excess calories; G89.29 Other chronic pain; I11.0 Hypertensive heart disease with heart failure; M54.50 Low back pain, unspecified; Z68.37 Body mass index [BMI] 37.0-37.9, adult; Z88.2 Allergy status to sulfonamides; Z88.5 Allergy status to narcotic agent
CPT/HCPCS: 93312; 93325; 93458; 99291; C9606; 36415; 36600; 71045; 80048; 80053; 81003; 82330; 82435; 82803; 82947; 82948; 83036; 83735; 83880; 84100; 84132; 84295; 84484; 85007; 85018; 85025; 85347; 85384; 85610; 85730; 86885; 86900; 86901; 86920; 87081; 87635; 93005; 94002; 94667; 94760; 97110; 97116; 97162; 97530; 99152; 99153; A4618; A4620; A6258; A6446; A6449; A7000; A7048; C1725; C1751; C1769; C1874; C9113; C9803; G0378; J0171; J0690; J0780; J1170; J1200; J1644; J1815; J1940; J2001; J2060; J2150; J2250; J2270; J2440; J2704; J2930; J2997; J3010; J3246; J3370; J3475; J3480; J3490; J7030; J7040; J7050; J7060; J7120; P9045; P9047; Q9967

== ENCOUNTER 2022-09-23 05:26 | Day surgery (SDC) | payer MEDICARE, OTHER ==
[2022-09-16 11:51] LABS: BASOPHILS % (AUTO) 0.3 % (0-1); EOSINOPHILS # (AUTO) 0.2 X10'3 (0-0.9); EOSINOPHILS % (AUTO) 2.6 % (0-6); LYMPHOCYTES # (AUTO) 2.3 X10'3 (1.1-4.8); LYMPHOCYTES % (AUTO) 28.6 % (21-51); MEAN CORPUSCULAR HEMOGLOBIN 30.2 PG (27.0-31.0); MEAN CORPUSCULAR HGB CONC 32.6 g/dL (33.0-36.5); MEAN CORPUSCULAR VOLUME 92.8 FL (78-98); MEAN PLATELET VOLUME 7.1 FL (7.4-10.4); MONOCYTES # (AUTO) 0.7 X10'3 (0-0.9); NEUTROPHILS # (AUTO) 4.7 X10'3 (1.8-7.7); NEUTROPHILS % (AUTO) 59.5 % (42-75); PRE OP HEMATOCRIT 44.4 % (42.0-52.0); PRE OP HEMOGLOBIN 14.4 g/dL (14.0-17.9); PRE OP PLATELET COUNT 268 X10'3 (140-440); RED BLOOD COUNT 4.78 X10'6 (4.70-6.10); RED CELL DISTRIBUTION WIDTH 15.1 % (11.5-14.5)
[2022-09-16 12:00] LABS: ALBUMIN 3.6 G/DL (3.4-5.0); ALBUMIN/GLOBULIN RATIO 0.9 (1.1-1.5); ALKALINE PHOSPHATASE 96 IU/L (46-116); BLOOD UREA NITROGEN 16 MG/DL (7-18); BUN/CREATININE RATIO 17.6 (5.4-32.0); CALCIUM 9.2 MG/DL (8.5-10.1); CHLORIDE 103 MMOL/L (99-107); CREATININE 0.91 MG/DL (0.60-1.10); PRE OP ALT 20 U/L (30-65); PRE OP ANION GAP 7 (8-16); PRE OP AST 17 U/L (10-37); PRE OP BILIRUB, TOTAL 0.5 MG/DL (0.0-1.0); PRE OP GLUCOSE 128 MG/DL (70-104); PRE OP POTASSIUM 4.5 MMOL/L (3.4-5.1); PRE OP SODIUM 138 MMOL/L (135-145); TOTAL CARBON DIOXIDE 27.8 MMOL/L (24-32); TOTAL PROTEIN 7.5 G/DL (6.4-8.2); eGFR 83 ML/MIN
[2022-09-23] VITALS (7 sets, daily range): BP systolic 114–140; BP diastolic 54–72
[~2022-09-23] VITALS: Ht 167.6 cm; Wt 95.4 kg
[~2022-09-23 05:26] MED LIST changes: +ASPI-280 PO; +ATOR20TA PO; +LISI2.5T14 PO; +LOP12.5T PO; -heparin 10,000 units/1 ML INJ ONE; -normal saline 1000ML IV soln ONE; -papaverine 30 mg/ml 2ml inj. ONE; +ringers solution, lacted 1,000 ML IV SCH; -sevoflurane 250ml liquid IH ONE
[2022-09-23] MEDS ORDERED: DOCUMENT DATE & TIME OF BETA-BLOCKER PO ONE (05:30)
[2022-09-23] MEDS ORDERED: ceFAZolin inj. 2,000 MG in dextrose 5%-water 100 ML IV ONE (05:30)
[2022-09-23] MEDS ORDERED: famotidine 20mg tablet PO ONE (05:30)
[2022-09-23] MEDS ORDERED: BUPIVAcaine/PF 2.5 mg/ml (0.25%) 30ml vial ONE (07:01)
[2022-09-23] MEDS ORDERED: ROPIVAcaine 0.5% (5mg/ml) 30ml vial ONE (07:17)
[2022-09-23] MEDS ORDERED: propofol inj 20 ML IV ONE (07:17)
[2022-09-23] MEDS ORDERED: fentaNYL/PF 50MCG/1 ML 2ML syringe ONE (07:17)
[2022-09-23] MEDS ORDERED: midazolam 1 mg/ML 2ml injection ONE (07:17)
[2022-09-23] MEDS ORDERED: LIDOcaine 2% (20mg/ml) 5ml vial ONE (07:17)
[2022-09-23] MEDS ORDERED: ondansetron/PF 4mg/2ml inj ONE (07:17)
[2022-09-23] MEDS ORDERED: dexamethasone sod phosphate 4mg/ml inj. ONE (07:20)
[2022-09-23] MEDS ORDERED: ringers solution, lacted 1,000 ML IV SCH (07:25)
[2022-09-23] MEDS ORDERED: ROPIVAcaine 0.2%/PF PUMP/bolus 545 ML INTERSCALE SCH (07:25)
[2022-09-23] MEDS ORDERED: ROPIVAcaine 0.2% (10 MG/5 ML) BOLUS INJECTION INTERSCALE PRN (07:25)
[2022-09-23] MEDS ORDERED: morphine 4 MG/ML inj SYRINge IV PRN (07:25)
[2022-09-23] MEDS ORDERED: ondansetron/PF 4mg/2ml inj IV PRN (07:25)
[2022-09-23] MEDS ORDERED: fentaNYL/PF 50MCG/1 ML 2ML syringe IV PRN ×2 (07:25)
[2022-09-23] MEDS ORDERED: hydrALAZINE 20mg/ml inj. IV PRN (07:25)
[2022-09-23] MEDS ORDERED: morphine 2 MG/ML inj. syringe IV PRN (07:25)
[2022-09-23] MEDS ORDERED: labetalol 20mg/4ml (5mg/ml) syringe IV PRN (07:25)
[2022-09-23] MEDS ORDERED: sevoflurane 250ml liquid IH ONE (07:35)
[2022-09-23] MEDS ORDERED: ePHEDrine 50MG/ML INJ. ONE (08:09)
--- NOTE | 2022-09-23 10:11 | NUR ---
Received from OR via [facility] IN STABLE CONDITION , accompanied by Anesthesiologist and HELP DESK SUPPORT SPECIALIST report given by HELP DESK SUPPORT SPECIALIST AND Anesthesiolgist. Addendum: 09/23/22 at 1024 by Yolanda Jon RN Amended: Links added.
[2022-09-23] MEDS ORDERED: HYDROcodone/acetaminophen 10/325mg tab PO PRN (10:15)
--- NOTE | 2022-09-23 11:11 | NUR ---
PATIENT DISCHARGED FROM PACU IN STABLE CONDITION AFTER WRITTEN AND VERBAL DISCHARGE INSTRUCTIONS GIVEN. PATIENT GAVE VERBAL UNDERSTANDING OF INSTRUCTIONS GIVEN. PATIENT LEFT FACILITY VIA WHEELCHAIR WITH RN. Addendum: 09/23/22 at 1122 by Yolanda Jon RN Amended: Links added.
== END 2022-09-23 11:11 | disposition home or self-care (01) ==
LOC: PAS 05:26
PROVIDERS: ATTEND Orthopaedic Surgery
DX: S46.011A Strain of muscle(s) and tendon(s) of the rotator cuff of right shoulder, initial encounter (principal); M19.019 Primary osteoarthritis, unspecified shoulder; M75.21 Bicipital tendinitis, right shoulder; M75.51 Bursitis of right shoulder; X58.XXXA Exposure to other specified factors, initial encounter; Y93.89 Activity, other specified; Y92.89 Other specified places as the place of occurrence of the external cause; Y99.8 Other external cause status; Z79.899 Other long term (current) drug therapy; Z98.890 Other specified postprocedural states; Z88.0 Allergy status to penicillin; Z87.891 Personal history of nicotine dependence; G89.18 Other acute postprocedural pain
CPT/HCPCS: 23120; 23130; 29827; 29828; 36415; 64415; 76942; 80053; 82948; 85025; 93005; C1713; J0690; J1100; J2250; J2405; J2704; J2795; J3010; J3490; J7060; J7120; Q4116; Z7506; Z7508; Z7512; A4565; A4618; A6449; A7000